=== PATIENT | male | born 1995 | race Caucasian/White ===

== ENCOUNTER 2017-05-18 05:14 | Emergency (ER) | payer BC ==
[~2017-05-18] VITALS: Ht 182.9 cm; Wt 92.0 kg
[2017-05-18 05:15] VITALS: BP 169/88; PULSE 89; RESP 18; TEMP 98; O2SAT 98
[2017-05-18] MEDS ORDERED: CYCLOBENZAPRINE HCL 10 MG TAB PO ONE (05:45)
--- NOTE | 2017-05-18 06:11 | RADRPT ---
EXAM DATE/TIME: 05/18/2017 05:47 [place] COMPARISON: No previous studies available for comparison. INDICATIONS : Chest and back pain. MEDICAL HISTORY : Bronchitis. SURGICAL HISTORY : None. ENCOUNTER: Initial ACUITY: 1 day PAIN SCORE: 10/10 LOCATION: Bilateral chest FINDINGS: PA and lateral views of the chest demonstrate the lungs to be symmetrically aerated without evidence of mass, infiltrate or effusion. The cardiomediastinal contours are unremarkable. Osseous structure s are intact. CONCLUSION: No acute disease. Foster Campos MD on May 18, 2017 at 6:09 Board Certified Radiologist. This report was verified electronically.
[2017-05-18] MEDS ORDERED: CYCL1TAB29 PO (06:24)
--- NOTE | 2017-05-18 06:24 | PD ---
HPI Chief Complaint: Respiratory Symptoms Time Seen by Provider: 05:31 Travel History International Travel<30 days: No Contact w/Intl Traveler<30days: No Traveled to known affect area: No History of Present Illness HPI Patient is a 21-year-old male presents emergency department with left back pain for the past few days gradually worsening spasmodic.. He states that it feels like her muscles tightening up and is making it hard for him to breathe. Denies any anterior chest pain denies any nausea or vomiting. States his abdomen one time in the past and he had some muscle relaxers and that helped. He is coming by his grandmother today. 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 Denies any acute traumatic event, denies any history of blood clots or early heart disease in the family. Denies any fever denies any cough. PFSH Past Medical History Medical History: Denies Significant Hx Past Surgical History Surgical History: No Previous Surgery Social History Alcohol Use: Yes (RARE) Tobacco Use: No Substance Use: No Allergies-Medications (Allergen,Severity, Reaction): Coded Allergies: No Known Allergies (Unverified , 05/18/17) Reported Meds & Prescriptions Reported Meds & Active Scripts Active Flexeril (Cyclobenzaprine HCl) 10 Mg Tab 10 Mg PO TID Review of Systems Except as stated in HPI: all other systems reviewed are Neg Physical Exam Narrative GENERAL: Well-nourished, well-developed patient. In no obvious distress. SKIN: Focused skin assessment warm/dry. HEAD: Normocephalic. Atraumatic EYES: No scleral icterus. No injection or drainage. NECK: Supple, trachea midline. No JVD or lymphadenopathy. CARDIOVASCULAR: Regular rate and rhythm without murmurs, gallops, or rubs. 2+ bilateral equal pulses in all 4 extremities. RESPIRATORY: Breath sounds equal bilaterally. No accessory muscle use. GASTROINTESTINAL: Abdomen soft, non-tender, nondistended. MUSCULOSKELETAL: No cyanosis, or edema. No tenderness left shoulder posterior thorax anterior thorax. Patient does have some tenderness with extension of the shoulder, BACK: Nontender without obvious deformity. No CVA tenderness. Data Data Last Documented VS Vital Signs Date Time Temp Pulse Resp B/P Pulse Ox O2 Delivery O2 Flow Rate FiO2 05/18/17 05:15 98.0 89 18 169/88 98 Room Air Orders Chest, Pa & Lat (05/18/17 ) Electrocardiogram (05/18/17 ) Cyclobenzaprine (Flexeril) (05/18/17 05:45) MDM Medical Decision Making Medical Screen Exam Complete: Yes Emergency Medical Condition: Yes Interpretation(s) EKG shows normal sinus or normal axis and normal R-wave progression. V3 is malfunctioning and this EKG, no concerning ST segment changes intervals within normal limits. Other than the V3 malfunctioning this is a normal EKG. Differential Diagnosis Muscular skeletal strain, muscle tells sprain, muscle spasm, ACS highly unlikely , PEs excluded by PERC and well's criteria. Narrative Course Patient was roomed in emergency department, appears well and in obvious distress. He was given muscle relaxer in the emergency department which felt his symptoms but did not completely alleviate. Chest x-ray was obtained and EKG is reassuring. Extremely low risk for cardiac or pulmonary etiology is stable for discharge. Discussed follow-up with primary care physician symptomatic management and return to ED criteria. Diagnosis Primary Impression: Back pain Med/Other Pt SpecificInfo: Prescription(s) given Scripts Cyclobenzaprine (Flexeril)10 Mg Tab10 Mg PO TID #20 TAB Ref 0 Prov:Hugo Medina MD 05/18/17 Disposition: 01 DISCHARGE HOME Condition: Stable Hugo Medina MD May 18, 2017 06:24
--- NOTE | 2017-05-18 17:39 | EKG ---
Date Performed: 05/18/2017 Time Performed: 06:03:12 PTAGE: 21 years EKG: Sinus rhythm NORMAL ECG WARNING: DATA QUALITY MAY AFFECT INTERPRETATION NO PREVIOUS TRACING DOCTOR: Magalis Flores Interpretating Date/Time 05/18/2017 17:35:53
== END 2017-05-18 06:47 | disposition home or self-care (01) ==
LOC: NEPE 05:14
DX: M54.9 Dorsalgia, unspecified (principal); R07.9 Chest pain, unspecified
CPT/HCPCS: 71020; 93005